=== PATIENT | male | born 1945 | race Caucasian/White ===

== ENCOUNTER 2018-07-29 22:30 | Inpatient (IN) | payer MEDICARE, BC ==
[2018-07-30] MEDS ORDERED: MAGNESIUM HYDROXIDE 30ML CUP PO (01:00)
[2018-07-30] MEDS ORDERED: ACETAMINOPHEN 325 MG TAB PO (01:00)
[2018-07-30] MEDS ORDERED: ONDANSETRON 4 MG INJ IV (01:00)
[2018-07-30] MEDS ORDERED: POLYETHYLENE GLYCOL 17 GM PACKET PO (01:00)
[2018-07-30] MEDS: SOD CHLORIDE 0.9% 1,000 ML IV ×3 (01:17→21:23)
[2018-07-30] MEDS: morphine SULFATE/PF (2 MG/2 ML) SYG IV (01:18)
[2018-07-30] MEDS: PANTOPRAZOLE (EC) 40 MG TAB PO (05:48)
[2018-07-30 06:36] LABS: ADD MAN DIFF? NO
[2018-07-30 06:52] LABS: ABNORMAL IP MESSAGE 1; BASOPHILS % 0.2 % (0.0-2.0); EOSINOPHILS % 0.7 % (0.0-7.0); HEMATOCRIT 20.2 % (42.0-52.0); LYMPHOCYTES # 1.3 10^3/ul (0.8-2.9); LYMPHOCYTES % 22.5 % (15.0-51.0); MEAN CORPUSCULAR HGB CONC 31.7 g/dl (32.0-37.0); MEAN CORPUSCULAR VOLUME 91.4 fl (82.0-101.0); MEAN PLATELET VOLUME 10.3 fl (7.4-10.4); MONOCYTE # 0.6 10^3/ul (0.3-0.9); MONOCYTES % 9.5 % (0.0-11.0); NEUTROPHIL # 3.8 10^3/ul (1.6-7.5); NEUTROPHILS % 64.9 % (39.0-77.0); NUCLEATED RED BLOOD CELLS% 0.5 /100WBC (0.0-0.0); PLATELET COUNT 149 10^3/UL (140-415); POSITIVE DIFF @See below; RED BLOOD COUNT 2.21 10^6/ul (4.70-6.10); RED CELL DISTRIBUTION WIDTH 16.7 % (11.5-14.5)
[2018-07-30 06:52] LABS: WHITE BLOOD COUNT 5.8 10^3/ul (4.8-10.8)
[2018-07-30 07:00] LABS: HEMOGLOBIN 6.4 g/dl (14.0-18.0); PATH REVIEW? YES
[2018-07-30 07:19] LABS: ALANINE AMINOTRANSFERASE 9 IU/L (13-69); ALBUMIN 3.2 g/dl (3.3-4.9); ALBUMIN/GLOBULIN RATIO 0.96; ALKALINE PHOSPHATASE 268 IU/L (42-121); ANION GAP 7 (5-13); ASPARTATE AMINO TRANSFERASE 51 IU/L (15-46); BLOOD UREA NITROGEN 28 mg/dl (7-20); CALCIUM 8.7 mg/dl (8.4-10.2); CARBON DIOXIDE 25 mmol/L (21-31); CHLORIDE 106 mmol/L (97-110); CREATININE 1.49 mg/dl (0.61-1.24); Estimated GFR 47 mL/min (>60); GLUCOSE 124 mg/dl (70-220); POTASSIUM 4.5 mmol/L (3.5-5.1); SODIUM 138 mmol/L (135-144); TOTAL PROTEIN 6.5 g/dl (6.1-8.1)
[2018-07-30 09:09] LABS: ANISOCYTOSIS 2+ (0-0); BAND NEUTROPHILS #M 0.1 10^3/ul (0.0-0.6); BAND NEUTROPHILS % (M) 2 % (0-4); BURR CELLS 1+ (0-0); ERYTHROBLAST% (NRBC) (M) 1 % (0-0); GIANT THROMBO% (M) 1 % (0-0); LYMPHOCYTES #M 1.4 10^3/ul (0.8-2.9); LYMPHOCYTES % (M) 25 % (15-51); MICROCYTOSIS 2+ (0-0); MONOCYTE #M 0.1 10^3/ul (0.3-0.9); MONOCYTES % (M) 3 % (0-11); MYELOCYTES % (M) 1 % (0-0); OVALOCYTES 1+ (0-0); PLATELET ESTIMATE NORMAL; POIKILOCYTOSIS 2+ (0-0); POLYCHROMASIA 1+ (0-0); SEGMENTED NEUTROPHILS (M) % 69 % (39-77); SMUDGE%M 12 % (0-0)
[2018-07-30] MEDS: THIAMINE 100 MG TAB PO (09:50)
[2018-07-30] MEDS: FERROUS SULFATE (EC) 325 MG TAB PO ×3 (09:50→21:03)
[2018-07-30] MEDS: FOLIC ACID 1 MG TAB PO (09:51)
[2018-07-30] MEDS: METOPROLOL 50 MG TAB PO ×2 (09:51→21:03)
[2018-07-30] MEDS: FAMOTIDINE 20 MG TAB PO (09:51)
[2018-07-30] MEDS: MULTIVITAMINS/MINERALS TAB PO (09:51)
[2018-07-30] MEDS: [UNRECOGNIZED DRUG - OTHER] XX ×2 (09:52→16:00)
[2018-07-30 12:45] LABS: IMMEDIATE SPIN CROSSMATCH 1 1
[2018-07-30 16:04] LABS: IRON 66 ug/dl (35-150)
[2018-07-30 16:14] LABS: % IRON SATURATION 26 % SAT (22-52); TOTAL IRON BINDING CAPACITY 254 ug/dl (241-421)
[2018-07-30 17:35] LABS: PROSTATE SPECIFIC ANTIGEN > 1000.0 ng/ml (0.0-4.0)
[2018-07-30] MEDS: TAMSULOSIN (SR) 0.4 MG CAP PO (21:03)
[2018-07-31] MEDS: traMADol 50 MG TAB PO (02:30)
[2018-07-31 05:05] LABS: ADD MAN DIFF? NO
[2018-07-31 05:08] LABS: WHITE BLOOD COUNT 6.2 10^3/ul (4.8-10.8)
[2018-07-31 05:08] LABS: BASOPHILS % 0.3 % (0.0-2.0); EOSINOPHILS # 0.1 10^3/ul (0.0-0.5); HEMATOCRIT 23.7 % (42.0-52.0); HEMOGLOBIN 7.5 g/dl (14.0-18.0); LYMPHOCYTES # 1.2 10^3/ul (0.8-2.9); LYMPHOCYTES % 19.7 % (15.0-51.0); MEAN CORPUSCULAR HGB CONC 31.6 g/dl (32.0-37.0); MEAN CORPUSCULAR VOLUME 91.5 fl (82.0-101.0); MEAN PLATELET VOLUME 9.7 fl (7.4-10.4); MONOCYTE # 0.6 10^3/ul (0.3-0.9); NEUTROPHIL # 4.1 10^3/ul (1.6-7.5); NEUTROPHILS % 66.1 % (39.0-77.0); NUCLEATED RED BLOOD CELLS% 0.3 /100WBC (0.0-0.0); PLATELET COUNT 154 10^3/UL (140-415); RED BLOOD COUNT 2.59 10^6/ul (4.70-6.10); RED CELL DISTRIBUTION WIDTH 15.9 % (11.5-14.5)
[2018-07-31 05:26] LABS: ANION GAP 11 (5-13); BLOOD UREA NITROGEN 21 mg/dl (7-20); CALCIUM 8.6 mg/dl (8.4-10.2); CARBON DIOXIDE 24 mmol/L (21-31); CHLORIDE 104 mmol/L (97-110); CREATININE 1.27 mg/dl (0.61-1.24); Estimated GFR 56 mL/min (>60); GLUCOSE 107 mg/dl (70-220); POTASSIUM 4.2 mmol/L (3.5-5.1); SODIUM 139 mmol/L (135-144)
[2018-07-31] MEDS: PANTOPRAZOLE (EC) 40 MG TAB PO ×2 (06:00→06:39)
[2018-07-31] MEDS: FOLIC ACID 1 MG TAB PO (08:38)
[2018-07-31] MEDS: FAMOTIDINE 20 MG TAB PO (08:38)
[2018-07-31] MEDS: FERROUS SULFATE (EC) 325 MG TAB PO ×3 (08:38→21:29)
[2018-07-31] MEDS: METOPROLOL 50 MG TAB PO ×2 (08:38→21:30)
[2018-07-31] MEDS: THIAMINE 100 MG TAB PO (08:38)
[2018-07-31] MEDS: MULTIVITAMINS/MINERALS TAB PO (08:38)
[2018-07-31] MEDS: [UNRECOGNIZED DRUG - OTHER] XX ×2 (09:51→16:00)
[2018-07-31] MEDS: SOD CHLORIDE 0.9% 1,000 ML IV (10:22)
[2018-07-31] MEDS: BICALUTAMIDE 50 MG TAB PO (18:16)
[2018-07-31] MEDS: TAMSULOSIN (SR) 0.4 MG CAP PO (21:29)
[2018-08-01] MEDS: traMADol 50 MG TAB PO (04:40)
[2018-08-01] MEDS: PANTOPRAZOLE (EC) 40 MG TAB PO (05:15)
[2018-08-01 06:16] LABS: ADD MAN DIFF? NO
[2018-08-01 06:24] LABS: WHITE BLOOD COUNT 5.7 10^3/ul (4.8-10.8)
[2018-08-01 06:24] LABS: BASOPHILS % 0.4 % (0.0-2.0); EOSINOPHILS # 0.1 10^3/ul (0.0-0.5); EOSINOPHILS % 1.1 % (0.0-7.0); HEMATOCRIT 25.8 % (42.0-52.0); HEMOGLOBIN 8.1 g/dl (14.0-18.0); LYMPHOCYTES # 1.1 10^3/ul (0.8-2.9); LYMPHOCYTES % 19.8 % (15.0-51.0); MEAN CORPUSCULAR HEMOGLOBIN 29.1 pg (29.0-33.0); MEAN CORPUSCULAR HGB CONC 31.4 g/dl (32.0-37.0); MEAN CORPUSCULAR VOLUME 92.8 fl (82.0-101.0); MEAN PLATELET VOLUME 10.5 fl (7.4-10.4); MONOCYTE # 0.5 10^3/ul (0.3-0.9); MONOCYTES % 8.3 % (0.0-11.0); NEUTROPHIL # 3.9 10^3/ul (1.6-7.5); NEUTROPHILS % 68.6 % (39.0-77.0); PLATELET COUNT 174 10^3/UL (140-415); RED BLOOD COUNT 2.78 10^6/ul (4.70-6.10); RED CELL DISTRIBUTION WIDTH 15.8 % (11.5-14.5)
[2018-08-01 07:01] LABS: ANION GAP 12 (5-13); BLOOD UREA NITROGEN 20 mg/dl (7-20); CALCIUM 8.7 mg/dl (8.4-10.2); CARBON DIOXIDE 23 mmol/L (21-31); CHLORIDE 106 mmol/L (97-110); CREATININE 1.28 mg/dl (0.61-1.24); Estimated GFR 56 mL/min (>60); GLUCOSE 142 mg/dl (70-220); POTASSIUM 4.5 mmol/L (3.5-5.1); SODIUM 141 mmol/L (135-144)
[2018-08-01] MEDS: THIAMINE 100 MG TAB PO (08:20)
[2018-08-01] MEDS: MULTIVITAMINS/MINERALS TAB PO (08:20)
[2018-08-01] MEDS: METOPROLOL 50 MG TAB PO ×2 (08:21→21:03)
[2018-08-01] MEDS: FERROUS SULFATE (EC) 325 MG TAB PO ×3 (08:21→21:00)
[2018-08-01] MEDS: FOLIC ACID 1 MG TAB PO (08:21)
[2018-08-01] MEDS: FAMOTIDINE 20 MG TAB PO (08:21)
[2018-08-01] MEDS: BICALUTAMIDE 50 MG TAB PO (08:23)
[2018-08-01] MEDS: [UNRECOGNIZED DRUG - OTHER] XX ×2 (10:00→16:00)
[2018-08-01] MEDS: SOD CHLORIDE 0.9% 1,000 ML IV (10:28)
[2018-08-01] MEDS ORDERED: LUPRON DEPOT XX (17:00)
[2018-08-01] MEDS: OXYCODONE/ACETAMINOPHEN (5/325) TAB PO (18:40)
[2018-08-01] MEDS: TAMSULOSIN (SR) 0.4 MG CAP PO (20:59)
[2018-08-01] MEDS: ZOLPIDEM 5 MG TAB PO (21:04)
[2018-08-02] MEDS: PANTOPRAZOLE (EC) 40 MG TAB PO (05:25)
[2018-08-02] MEDS: FOLIC ACID 1 MG TAB PO (09:01)
[2018-08-02] MEDS: MULTIVITAMINS/MINERALS TAB PO (09:01)
[2018-08-02] MEDS: THIAMINE 100 MG TAB PO (09:02)
[2018-08-02] MEDS: FERROUS SULFATE (EC) 325 MG TAB PO ×3 (09:02→21:49)
[2018-08-02] MEDS: METOPROLOL 50 MG TAB PO ×2 (09:02→21:50)
[2018-08-02] MEDS: FAMOTIDINE 20 MG TAB PO (09:02)
[2018-08-02] MEDS: BICALUTAMIDE 50 MG TAB PO (09:03)
[2018-08-02] MEDS: [UNRECOGNIZED DRUG - OTHER] XX ×2 (10:00→16:00)
[2018-08-02] MEDS ORDERED: FENTAnyl 50 MCG/ML VIAL IV (12:30)
[2018-08-02] MEDS ORDERED: ONDANSETRON 4 MG INJ IV (12:30)
[2018-08-02] MEDS: SOD CHLORIDE 0.9% 1,000 ML IV ×2 (16:50→23:36)
[2018-08-02] MEDS: TAMSULOSIN (SR) 0.4 MG CAP PO (21:49)
[2018-08-02] MEDS: ZOLPIDEM 5 MG TAB PO (21:49)
[2018-08-02] MEDS: OXYCODONE/ACETAMINOPHEN (5/325) TAB PO (23:35)
[2018-08-03 05:23] LABS: ADD MAN DIFF? NO
[2018-08-03 05:26] LABS: BASOPHILS % 0.3 % (0.0-2.0); EOSINOPHILS # 0.1 10^3/ul (0.0-0.5); EOSINOPHILS % 1.9 % (0.0-7.0); HEMATOCRIT 23.8 % (42.0-52.0); HEMOGLOBIN 7.6 g/dl (14.0-18.0); LYMPHOCYTES # 1.6 10^3/ul (0.8-2.9); LYMPHOCYTES % 27.7 % (15.0-51.0); MEAN CORPUSCULAR HEMOGLOBIN 29.2 pg (29.0-33.0); MEAN CORPUSCULAR HGB CONC 31.9 g/dl (32.0-37.0); MEAN CORPUSCULAR VOLUME 91.5 fl (82.0-101.0); MEAN PLATELET VOLUME 10.3 fl (7.4-10.4); MONOCYTE # 0.5 10^3/ul (0.3-0.9); NEUTROPHIL # 3.4 10^3/ul (1.6-7.5); NEUTROPHILS % 59.2 % (39.0-77.0); PLATELET COUNT 208 10^3/UL (140-415); RED CELL DISTRIBUTION WIDTH 15.9 % (11.5-14.5)
[2018-08-03 05:26] LABS: WHITE BLOOD COUNT 5.8 10^3/ul (4.8-10.8)
[2018-08-03] MEDS: PANTOPRAZOLE (EC) 40 MG TAB PO (05:28)
[2018-08-03 05:48] LABS: ANION GAP 8 (5-13); BLOOD UREA NITROGEN 26 mg/dl (7-20); CALCIUM 8.8 mg/dl (8.4-10.2); CARBON DIOXIDE 22 mmol/L (21-31); CHLORIDE 108 mmol/L (97-110); CREATININE 1.46 mg/dl (0.61-1.24); Estimated GFR 48 mL/min (>60); GLUCOSE 101 mg/dl (70-220); POTASSIUM 4.2 mmol/L (3.5-5.1); SODIUM 138 mmol/L (135-144)
[2018-08-03 05:52] LABS: MAGNESIUM 1.9 mg/dl (1.7-2.5)
[2018-08-03 05:52] LABS: PHOSPHORUS 4.3 mg/dl (2.5-4.9)
[2018-08-03] MEDS: THIAMINE 100 MG TAB PO (08:50)
[2018-08-03] MEDS: FERROUS SULFATE (EC) 325 MG TAB PO ×3 (08:50→20:31)
[2018-08-03] MEDS: FAMOTIDINE 20 MG TAB PO (08:50)
[2018-08-03] MEDS: FOLIC ACID 1 MG TAB PO (08:50)
[2018-08-03] MEDS: MULTIVITAMINS/MINERALS TAB PO (08:50)
[2018-08-03] MEDS: METOPROLOL 50 MG TAB PO ×2 (08:51→20:32)
[2018-08-03] MEDS: BICALUTAMIDE 50 MG TAB PO (08:52)
[2018-08-03] MEDS: [UNRECOGNIZED DRUG - OTHER] XX ×2 (08:53→15:02)
[2018-08-03 13:21] LABS: ALPHA FETOPROTEIN 1.97 IU/L (0.00-7.21)
[2018-08-03 13:32] LABS: CANCER ANTIGEN 19-9 < 1.4 U/ml (0.0-37.0)
[2018-08-03] MEDS: TAMSULOSIN (SR) 0.4 MG CAP PO (20:31)
[2018-08-04] MEDS: OXYCODONE/ACETAMINOPHEN (5/325) TAB PO ×2 (02:01→20:31)
[2018-08-04] MEDS: PANTOPRAZOLE (EC) 40 MG TAB PO (06:21)
[2018-08-04 06:23] LABS: ALANINE AMINOTRANSFERASE 15 IU/L (13-69); ALBUMIN 3.1 g/dl (3.3-4.9); ALKALINE PHOSPHATASE 242 IU/L (42-121); ASPARTATE AMINO TRANSFERASE 24 IU/L (15-46); TOTAL PROTEIN 6.2 g/dl (6.1-8.1)
[2018-08-04] MEDS: MULTIVITAMINS/MINERALS TAB PO (08:47)
[2018-08-04] MEDS: FERROUS SULFATE (EC) 325 MG TAB PO ×3 (08:47→20:34)
[2018-08-04] MEDS: FOLIC ACID 1 MG TAB PO (08:47)
[2018-08-04] MEDS: THIAMINE 100 MG TAB PO (08:47)
[2018-08-04] MEDS: FAMOTIDINE 20 MG TAB PO (08:47)
[2018-08-04] MEDS: BICALUTAMIDE 50 MG TAB PO (08:48)
[2018-08-04] MEDS: METOPROLOL 50 MG TAB PO ×2 (08:48→20:32)
[2018-08-04] MEDS: [UNRECOGNIZED DRUG - OTHER] XX ×2 (08:49→14:48)
[2018-08-04] MEDS: SOD CHLORIDE 0.9% 1,000 ML IV (08:57)
[2018-08-04] MEDS: TAMSULOSIN (SR) 0.4 MG CAP PO (20:30)
[2018-08-04] MEDS: morphine LIQ (10 MG/5 ML) CUP PO (22:16)
[2018-08-05] MEDS: PANTOPRAZOLE (EC) 40 MG TAB PO (05:45)
[2018-08-05] MEDS: OXYCODONE/ACETAMINOPHEN (5/325) TAB PO ×2 (05:46→17:47)
[2018-08-05] MEDS: [UNRECOGNIZED DRUG - OTHER] XX ×2 (09:16→16:00)
[2018-08-05] MEDS: MULTIVITAMINS/MINERALS TAB PO (09:25)
[2018-08-05] MEDS: FAMOTIDINE 20 MG TAB PO (09:25)
[2018-08-05] MEDS: FERROUS SULFATE (EC) 325 MG TAB PO ×3 (09:25→20:42)
[2018-08-05] MEDS: FOLIC ACID 1 MG TAB PO (09:25)
[2018-08-05] MEDS: THIAMINE 100 MG TAB PO (09:25)
[2018-08-05] MEDS: BICALUTAMIDE 50 MG TAB PO (09:27)
[2018-08-05 10:26] LABS: ADD MAN DIFF? NO
[2018-08-05 10:44] LABS: BASOPHILS % 0.2 % (0.0-2.0); EOSINOPHILS # 0.1 10^3/ul (0.0-0.5); EOSINOPHILS % 1.6 % (0.0-7.0); HEMATOCRIT 25.6 % (42.0-52.0); HEMOGLOBIN 7.8 g/dl (14.0-18.0); LYMPHOCYTES # 1.4 10^3/ul (0.8-2.9); LYMPHOCYTES % 27.8 % (15.0-51.0); MEAN CORPUSCULAR HEMOGLOBIN 29.1 pg (29.0-33.0); MEAN CORPUSCULAR HGB CONC 30.5 g/dl (32.0-37.0); MEAN CORPUSCULAR VOLUME 95.5 fl (82.0-101.0); MEAN PLATELET VOLUME 10.3 fl (7.4-10.4); MONOCYTE # 0.5 10^3/ul (0.3-0.9); MONOCYTES % 9.7 % (0.0-11.0); NEUTROPHIL # 2.9 10^3/ul (1.6-7.5); NEUTROPHILS % 58.1 % (39.0-77.0); PLATELET COUNT 234 10^3/UL (140-415); RED BLOOD COUNT 2.68 10^6/ul (4.70-6.10); RED CELL DISTRIBUTION WIDTH 16.5 % (11.5-14.5)
[2018-08-05 11:00] LABS: ANION GAP 9 (5-13); BLOOD UREA NITROGEN 24 mg/dl (7-20); CALCIUM 9.2 mg/dl (8.4-10.2); CARBON DIOXIDE 22 mmol/L (21-31); CHLORIDE 110 mmol/L (97-110); CREATININE 1.23 mg/dl (0.61-1.24); Estimated GFR 58 mL/min (>60); GLUCOSE 126 mg/dl (70-220); POTASSIUM 3.8 mmol/L (3.5-5.1); SODIUM 141 mmol/L (135-144)
[2018-08-05] MEDS: METOPROLOL 50 MG TAB PO ×2 (11:07→20:43)
[2018-08-05] MEDS: TAMSULOSIN (SR) 0.4 MG CAP PO (20:42)
[2018-08-06] MEDS: OXYCODONE/ACETAMINOPHEN (5/325) TAB PO ×4 (02:49→21:06)
[2018-08-06] MEDS: PANTOPRAZOLE (EC) 40 MG TAB PO (06:03)
[2018-08-06] MEDS: SENNA TAB PO (06:03)
[2018-08-06] MEDS: MULTIVITAMINS/MINERALS TAB PO (09:15)
[2018-08-06] MEDS: FERROUS SULFATE (EC) 325 MG TAB PO ×3 (09:15→20:47)
[2018-08-06] MEDS: THIAMINE 100 MG TAB PO (09:15)
[2018-08-06] MEDS: FAMOTIDINE 20 MG TAB PO (09:15)
[2018-08-06] MEDS: FOLIC ACID 1 MG TAB PO (09:15)
[2018-08-06] MEDS: METOPROLOL 50 MG TAB PO ×2 (09:16→20:46)
[2018-08-06] MEDS: BICALUTAMIDE 50 MG TAB PO (09:16)
[2018-08-06] MEDS: [UNRECOGNIZED DRUG - OTHER] XX ×2 (10:00→16:00)
[2018-08-06] MEDS: TAMSULOSIN (SR) 0.4 MG CAP PO (20:47)
[2018-08-06 23:09] LABS: OCCULT BLOOD STOOL NEGATIVE (NEGATIVE)
[2018-08-07 06:25] LABS: ADD MAN DIFF? NO
[2018-08-07 06:30] LABS: WHITE BLOOD COUNT 4.4 10^3/ul (4.8-10.8)
[2018-08-07 06:30] LABS: BASOPHILS % 0.2 % (0.0-2.0); EOSINOPHILS # 0.1 10^3/ul (0.0-0.5); EOSINOPHILS % 2.1 % (0.0-7.0); HEMATOCRIT 23.9 % (42.0-52.0); HEMOGLOBIN 7.5 g/dl (14.0-18.0); LYMPHOCYTES # 1.2 10^3/ul (0.8-2.9); LYMPHOCYTES % 27.6 % (15.0-51.0); MEAN CORPUSCULAR HEMOGLOBIN 29.5 pg (29.0-33.0); MEAN CORPUSCULAR HGB CONC 31.4 g/dl (32.0-37.0); MEAN CORPUSCULAR VOLUME 94.1 fl (82.0-101.0); MEAN PLATELET VOLUME 10.2 fl (7.4-10.4); MONOCYTE # 0.4 10^3/ul (0.3-0.9); MONOCYTES % 9.6 % (0.0-11.0); NEUTROPHIL # 2.6 10^3/ul (1.6-7.5); NEUTROPHILS % 58.9 % (39.0-77.0); PLATELET COUNT 218 10^3/UL (140-415); RED BLOOD COUNT 2.54 10^6/ul (4.70-6.10); RED CELL DISTRIBUTION WIDTH 16.3 % (11.5-14.5)
[2018-08-07] MEDS: PANTOPRAZOLE (EC) 40 MG TAB PO (06:38)
[2018-08-07 06:46] LABS: ANION GAP 8 (5-13); BLOOD UREA NITROGEN 23 mg/dl (7-20); CALCIUM 8.9 mg/dl (8.4-10.2); CARBON DIOXIDE 25 mmol/L (21-31); CHLORIDE 105 mmol/L (97-110); CREATININE 1.22 mg/dl (0.61-1.24); Estimated GFR 59 mL/min (>60); GLUCOSE 115 mg/dl (70-220); POTASSIUM 4.3 mmol/L (3.5-5.1); SODIUM 138 mmol/L (135-144)
[2018-08-07] MEDS: FOLIC ACID 1 MG TAB PO (09:15)
[2018-08-07] MEDS: THIAMINE 100 MG TAB PO (09:15)
[2018-08-07] MEDS: OXYCODONE/ACETAMINOPHEN (5/325) TAB PO ×2 (09:15→17:49)
[2018-08-07] MEDS: BICALUTAMIDE 50 MG TAB PO (09:16)
[2018-08-07] MEDS: FERROUS SULFATE (EC) 325 MG TAB PO ×3 (09:16→20:34)
[2018-08-07] MEDS: METOPROLOL 50 MG TAB PO (09:16)
[2018-08-07] MEDS: MULTIVITAMINS/MINERALS TAB PO (09:16)
[2018-08-07] MEDS: FAMOTIDINE 20 MG TAB PO (09:17)
[2018-08-07] MEDS: [UNRECOGNIZED DRUG - OTHER] XX ×2 (09:21→14:27)
[2018-08-07] MEDS: TAMSULOSIN (SR) 0.4 MG CAP PO (20:33)
[2018-08-07] MEDS: traMADol 50 MG TAB PO (20:33)
[2018-08-07] MEDS: METOPROLOL 25 MG TAB PO (20:33)
[2018-08-07] MEDS: morphine LIQ (10 MG/5 ML) CUP PO (23:36)
[2018-08-08] MEDS: OXYCODONE/ACETAMINOPHEN (5/325) TAB PO ×2 (03:17→23:39)
[2018-08-08] MEDS: PANTOPRAZOLE (EC) 40 MG TAB PO (06:17)
[2018-08-08] MEDS: THIAMINE 100 MG TAB PO (08:40)
[2018-08-08] MEDS: MULTIVITAMINS/MINERALS TAB PO (08:40)
[2018-08-08] MEDS: FERROUS SULFATE (EC) 325 MG TAB PO ×3 (08:40→19:45)
[2018-08-08] MEDS: FOLIC ACID 1 MG TAB PO (08:40)
[2018-08-08] MEDS: FAMOTIDINE 20 MG TAB PO (08:40)
[2018-08-08] MEDS: BICALUTAMIDE 50 MG TAB PO (08:41)
[2018-08-08] MEDS: METOPROLOL 25 MG TAB PO (09:00)
[2018-08-08] MEDS: [UNRECOGNIZED DRUG - OTHER] XX ×2 (09:10→15:00)
[2018-08-08] MEDS: PROPOFOL 20 ML (19:30)
[2018-08-08] MEDS: FENTAnyl 50 MCG/ML VIAL (19:30)
[2018-08-08] MEDS: TAMSULOSIN (SR) 0.4 MG CAP PO (19:46)
[2018-08-09] MEDS: traMADol 50 MG TAB PO (02:01)
[2018-08-09] MEDS: PANTOPRAZOLE (EC) 40 MG TAB PO (05:22)
[2018-08-09 07:23] LABS: ADD MAN DIFF? NO
[2018-08-09 07:33] LABS: BASOPHILS % 0.2 % (0.0-2.0); EOSINOPHILS # 0.1 10^3/ul (0.0-0.5); EOSINOPHILS % 2.2 % (0.0-7.0); HEMATOCRIT 24.1 % (42.0-52.0); HEMOGLOBIN 7.5 g/dl (14.0-18.0); LYMPHOCYTES # 1.2 10^3/ul (0.8-2.9); LYMPHOCYTES % 26.4 % (15.0-51.0); MEAN CORPUSCULAR HEMOGLOBIN 29.9 pg (29.0-33.0); MEAN CORPUSCULAR HGB CONC 31.1 g/dl (32.0-37.0); MEAN PLATELET VOLUME 10.5 fl (7.4-10.4); MONOCYTE # 0.4 10^3/ul (0.3-0.9); MONOCYTES % 9.4 % (0.0-11.0); NEUTROPHIL # 2.7 10^3/ul (1.6-7.5); PLATELET COUNT 217 10^3/UL (140-415); RED BLOOD COUNT 2.51 10^6/ul (4.70-6.10); RED CELL DISTRIBUTION WIDTH 16.8 % (11.5-14.5)
[2018-08-09 07:33] LABS: WHITE BLOOD COUNT 4.5 10^3/ul (4.8-10.8)
[2018-08-09 07:50] LABS: ANION GAP 9 (5-13); BLOOD UREA NITROGEN 23 mg/dl (7-20); CALCIUM 9.3 mg/dl (8.4-10.2); CARBON DIOXIDE 26 mmol/L (21-31); CHLORIDE 103 mmol/L (97-110); CREATININE 1.23 mg/dl (0.61-1.24); Estimated GFR 58 mL/min (>60); GLUCOSE 117 mg/dl (70-220); POTASSIUM 4.1 mmol/L (3.5-5.1); SODIUM 138 mmol/L (135-144)
[2018-08-09] MEDS: FOLIC ACID 1 MG TAB PO (08:34)
[2018-08-09] MEDS: THIAMINE 100 MG TAB PO (08:34)
[2018-08-09] MEDS: FAMOTIDINE 20 MG TAB PO (08:34)
[2018-08-09] MEDS: MULTIVITAMINS/MINERALS TAB PO (08:34)
[2018-08-09] MEDS: FERROUS SULFATE (EC) 325 MG TAB PO ×3 (08:34→21:00)
[2018-08-09] MEDS: BICALUTAMIDE 50 MG TAB PO (08:35)
[2018-08-09] MEDS: [UNRECOGNIZED DRUG - OTHER] XX ×2 (10:00→15:31)
[2018-08-09] MEDS: OXYCODONE/ACETAMINOPHEN (5/325) TAB PO ×2 (13:34→21:01)
[2018-08-09] MEDS: TAMSULOSIN (SR) 0.4 MG CAP PO (21:00)
[2018-08-10] MEDS: PANTOPRAZOLE (EC) 40 MG TAB PO (05:52)
[2018-08-10] MEDS: OXYCODONE/ACETAMINOPHEN (5/325) TAB PO ×3 (05:52→21:04)
[2018-08-10 07:49] LABS: ALANINE AMINOTRANSFERASE 18 IU/L (13-69); ALBUMIN 3.6 g/dl (3.3-4.9); ALBUMIN/GLOBULIN RATIO 1.09; ALKALINE PHOSPHATASE 356 IU/L (42-121); ANION GAP 8 (5-13); ASPARTATE AMINO TRANSFERASE 34 IU/L (15-46); BLOOD UREA NITROGEN 26 mg/dl (7-20); CALCIUM 9.4 mg/dl (8.4-10.2); CARBON DIOXIDE 29 mmol/L (21-31); CHLORIDE 101 mmol/L (97-110); Estimated GFR 55 mL/min (>60); GLUCOSE 92 mg/dl (70-220); POTASSIUM 4.9 mmol/L (3.5-5.1); SODIUM 138 mmol/L (135-144); TOTAL PROTEIN 6.9 g/dl (6.1-8.1)
[2018-08-10] MEDS: FOLIC ACID 1 MG TAB PO (08:50)
[2018-08-10] MEDS: THIAMINE 100 MG TAB PO (08:50)
[2018-08-10] MEDS: FAMOTIDINE 20 MG TAB PO (08:50)
[2018-08-10] MEDS: MULTIVITAMINS/MINERALS TAB PO (08:50)
[2018-08-10] MEDS: FERROUS SULFATE (EC) 325 MG TAB PO ×3 (08:50→21:04)
[2018-08-10] MEDS: BICALUTAMIDE 50 MG TAB PO (08:51)
[2018-08-10] MEDS: [UNRECOGNIZED DRUG - OTHER] XX ×2 (08:55→15:03)
[2018-08-10] MEDS: TAMSULOSIN (SR) 0.4 MG CAP PO (21:04)
[2018-08-11] MEDS: PANTOPRAZOLE (EC) 40 MG TAB PO (06:23)
[2018-08-11] MEDS: OXYCODONE/ACETAMINOPHEN (5/325) TAB PO (06:23)
[2018-08-11] MEDS: MULTIVITAMINS/MINERALS TAB PO (08:40)
[2018-08-11] MEDS: THIAMINE 100 MG TAB PO (08:40)
[2018-08-11] MEDS: FOLIC ACID 1 MG TAB PO (08:40)
[2018-08-11] MEDS: FAMOTIDINE 20 MG TAB PO (08:40)
[2018-08-11] MEDS: FERROUS SULFATE (EC) 325 MG TAB PO ×2 (08:40→14:23)
[2018-08-11] MEDS: [UNRECOGNIZED DRUG - OTHER] XX ×2 (08:40→15:28)
[2018-08-11] MEDS: BICALUTAMIDE 50 MG TAB PO (08:43)
[2018-08-11 10:32] LABS: ALANINE AMINOTRANSFERASE 24 IU/L (13-69)
[2018-08-11 10:32] LABS: ASPARTATE AMINO TRANSFERASE 27 IU/L (15-46)
[2018-08-13 15:26] LABS: ALKALINE PHOSPHATASE 456 U/L (40-115); BONE ISOENZYMES 76 % (28-66); INTESTINAL ISOENZYMES 5 % (1-24); LIVER ISOENZYMES 19 % (25-69); PLACENTAL ISOENZYMES 0 % (0)
== END 2018-08-11 15:43 | DRG 542 ==
LOC: TEL 22:30 → PP2 07-30 18:54
PROC: 30233N1 Transfusion of Nonautologous Red Blood Cells into Peripheral Vein, Percutaneous Approach (ICD-10-PCS; principal; 2018-08-02 11:23)
PROC: 0DB68ZX Excision of Stomach, Via Natural or Artificial Opening Endoscopic, Diagnostic (ICD-10-PCS; 2018-08-02 11:23)
DX: C79.51 Secondary malignant neoplasm of bone (principal); G93.41 Metabolic encephalopathy; D63.8 Anemia in other chronic diseases classified elsewhere; E43 Unspecified severe protein-calorie malnutrition; N17.9 Acute kidney failure, unspecified; Z68.1 Body mass index [BMI] 19.9 or less, adult; C78.00 Secondary malignant neoplasm of unspecified lung; N13.1 Hydronephrosis with ureteral stricture, not elsewhere classified; K92.2 Gastrointestinal hemorrhage, unspecified; R59.1 Generalized enlarged lymph nodes; D69.6 Thrombocytopenia, unspecified; F10.21 Alcohol dependence, in remission; Z86.19 Personal history of other infectious and parasitic diseases; C61 Malignant neoplasm of prostate; K29.00 Acute gastritis without bleeding
CPT/HCPCS: 36430; 72100; 72170; 74018; 74181; 76705; 76775; 78306; 80048; 80053; 80076; 82105; 82247; 82270; 82378; 82728; 83540; 83735; 84080; 84100; 84153; 84154; 84450; 84460; 85025; 86301; 86850; 86900; 86901; 86920; 88305; 88312; 97161; A9503

== ENCOUNTER 2019-02-10 05:11 | Inpatient (IN) | payer MEDICARE, BC ==
[2019-02-10] MEDS ORDERED: PENDING SANTYL ORDER FOR WOUND CARE XX (06:00)
[2019-02-10] MEDS ORDERED: BISACODYL (EC) 5 MG TAB PO (06:00)
[2019-02-10] MEDS ORDERED: ALBUTEROL/IPRATROPIUM (NEB) 3 ML AMP HHN (06:00)
[2019-02-10] MEDS: ACETAMINOPHEN 325 MG TAB PO ×2 (06:35→10:45)
[2019-02-10] MEDS: PANTOPRAZOLE (EC) 40 MG TAB PO (06:35)
[2019-02-10] MEDS: SOD CHLORIDE 0.9% 1,000 ML IV (06:36)
[2019-02-10 09:23] LABS: ADD MAN DIFF? NO
[2019-02-10 09:24] LABS: WHITE BLOOD COUNT 4.1 10^3/ul (4.8-10.8)
[2019-02-10 09:25] LABS: ABNORMAL IP MESSAGE 1; BASOPHILS % 0.2 % (0.0-2.0); EOSINOPHILS % 0.5 % (0.0-7.0); HEMATOCRIT 26.1 % (42.0-52.0); HEMOGLOBIN 7.5 g/dl (14.0-18.0); LYMPHOCYTES # 0.7 10^3/ul (0.8-2.9); MEAN CORPUSCULAR HGB CONC 28.7 g/dl (32.0-37.0); MEAN CORPUSCULAR VOLUME 90.6 fl (82.0-101.0); MEAN PLATELET VOLUME 10.2 fl (7.4-10.4); MONOCYTE # 0.3 10^3/ul (0.3-0.9); MONOCYTES % 6.3 % (0.0-11.0); NEUTROPHIL # 3.1 10^3/ul (1.6-7.5); NEUTROPHILS % 75.5 % (39.0-77.0); POSITIVE DIFF @See below; RED BLOOD COUNT 2.88 10^6/ul (4.70-6.10); RED CELL DISTRIBUTION WIDTH 16.6 % (11.5-14.5)
[2019-02-10 09:30] LABS: PLATELET COUNT 104 10^3/UL (140-415)
[2019-02-10 09:43] LABS: ALANINE AMINOTRANSFERASE 13 IU/L (13-69); ALBUMIN 2.4 g/dl (3.3-4.9); ALBUMIN/GLOBULIN RATIO 0.72; ALKALINE PHOSPHATASE 442 IU/L (42-121); ANION GAP 7 (5-13); ASPARTATE AMINO TRANSFERASE 49 IU/L (15-46); BILIRUBIN,INDIRECT 0.2 mg/dl (0-1.1); BILIRUBIN,TOTAL 0.2 mg/dl (0.2-1.3); BLOOD UREA NITROGEN 25 mg/dl (7-20); CALCIUM 7.1 mg/dl (8.4-10.2); CARBON DIOXIDE 20 mmol/L (21-31); CHLORIDE 109 mmol/L (97-110); CREATININE 1.21 mg/dl (0.61-1.24); GLUCOSE 104 mg/dl (70-220); POTASSIUM 3.8 mmol/L (3.5-5.1); SODIUM 136 mmol/L (135-144); TOTAL PROTEIN 5.7 g/dl (6.1-8.1)
[2019-02-10] MEDS: CEFTRIAXONE 1 GM/50 ML (PMX) 50 ML IVPB (16:00)
[2019-02-10] MEDS: CA CARBONATE (250 MG/ML) 5ML CUP PO (20:48)
[2019-02-11] MEDS: HYDROCODONE/APAP (5/325) TAB PO ×2 (03:46→10:11)
[2019-02-11] MEDS: PANTOPRAZOLE (EC) 40 MG TAB PO (08:51)
[2019-02-11] MEDS: BICALUTAMIDE 50 MG TAB PO (08:52)
[2019-02-11] MEDS: CA CARBONATE (250 MG/ML) 5ML CUP PO ×2 (09:00→20:39)
[2019-02-11 09:54] LABS: ADD MAN DIFF? NO
[2019-02-11 09:56] LABS: EOSINOPHILS % 0.2 % (0.0-7.0); HEMATOCRIT 27.2 % (42.0-52.0); HEMOGLOBIN 8.4 g/dl (14.0-18.0); LYMPHOCYTES # 0.9 10^3/ul (0.8-2.9); LYMPHOCYTES % 14.6 % (15.0-51.0); MEAN CORPUSCULAR HEMOGLOBIN 26.3 pg (29.0-33.0); MEAN CORPUSCULAR HGB CONC 30.9 g/dl (32.0-37.0); MEAN PLATELET VOLUME 8.7 fl (7.4-10.4); MONOCYTE # 0.3 10^3/ul (0.3-0.9); MONOCYTES % 4.4 % (0.0-11.0); NEUTROPHIL # 4.9 10^3/ul (1.6-7.5); PLATELET COUNT 136 10^3/UL (140-415); RED CELL DISTRIBUTION WIDTH 16.5 % (11.5-14.5)
[2019-02-11 09:56] LABS: WHITE BLOOD COUNT 6.1 10^3/ul (4.8-10.8)
[2019-02-11 10:15] LABS: ANION GAP 5 (5-13); BLOOD UREA NITROGEN 25 mg/dl (7-20); CALCIUM 8.1 mg/dl (8.4-10.2); CARBON DIOXIDE 27 mmol/L (21-31); CHLORIDE 105 mmol/L (97-110); CREATININE 1.19 mg/dl (0.61-1.24); GLUCOSE 143 mg/dl (70-220); POTASSIUM 4.6 mmol/L (3.5-5.1); SODIUM 137 mmol/L (135-144)
[2019-02-11 10:20] LABS: PHOSPHORUS 2.5 mg/dl (2.5-4.9)
[2019-02-11 10:20] LABS: MAGNESIUM 1.8 mg/dl (1.7-2.5)
[2019-02-11] MEDS ORDERED: HYDROCODONE/APAP (5/325) TAB PO ×2 (10:35→11:00)
[2019-02-11] MEDS: KETOROLAC 30 MG INJ IV ×2 (15:30→21:30)
[2019-02-11] MEDS: CEFTRIAXONE 1 GM/50 ML (PMX) 50 ML IVPB (16:00)
[2019-02-11] MEDS: HYDROmorphONE 2 MG/ML SYG IV ×2 (16:25→20:40)
[2019-02-11] MEDS: METHADONE (1 MG/ML 5 ML PO UD SYG) PO ×2 (18:31→21:40)
[2019-02-11] MEDS: LORAZEPAM 2 MG INJ IV (23:04)
[2019-02-12] MEDS: METHADONE (1 MG/ML 5 ML PO UD SYG) PO ×7 (01:00→23:28)
[2019-02-12] MEDS: KETOROLAC 30 MG INJ IV ×4 (03:30→21:01)
[2019-02-12] MEDS: PANTOPRAZOLE (EC) 40 MG TAB PO (05:33)
[2019-02-12 08:48] LABS: ADD MAN DIFF? NO
[2019-02-12] MEDS: CA CARBONATE (250 MG/ML) 5ML CUP PO ×2 (08:55→20:59)
[2019-02-12] MEDS: BICALUTAMIDE 50 MG TAB PO (08:55)
[2019-02-12 09:10] LABS: WHITE BLOOD COUNT 4.3 10^3/ul (4.8-10.8)
[2019-02-12 09:10] LABS: ABNORMAL IP MESSAGE 1; BASOPHILS % 0.2 % (0.0-2.0); HEMOGLOBIN 10.8 g/dl (14.0-18.0); LYMPHOCYTES # 0.9 10^3/ul (0.8-2.9); LYMPHOCYTES % 20.9 % (15.0-51.0); MEAN CORPUSCULAR HGB CONC 30.9 g/dl (32.0-37.0); MEAN CORPUSCULAR VOLUME 84.3 fl (82.0-101.0); MEAN PLATELET VOLUME 11.7 fl (7.4-10.4); MONOCYTE # 0.2 10^3/ul (0.3-0.9); MONOCYTES % 5.2 % (0.0-11.0); NEUTROPHIL # 3.1 10^3/ul (1.6-7.5); NEUTROPHILS % 72.5 % (39.0-77.0); PLATELET COUNT 95 10^3/UL (140-415); POSITIVE DIFF @See below; RED BLOOD COUNT 4.15 10^6/ul (4.70-6.10); RED CELL DISTRIBUTION WIDTH 16.5 % (11.5-14.5)
[2019-02-12 09:13] LABS: ANION GAP 12 (5-13); BLOOD UREA NITROGEN 24 mg/dl (7-20); CALCIUM 8.5 mg/dl (8.4-10.2); CARBON DIOXIDE 22 mmol/L (21-31); CHLORIDE 106 mmol/L (97-110); CREATININE 0.95 mg/dl (0.61-1.24); GLUCOSE 68 mg/dl (70-220); POTASSIUM 4.7 mmol/L (3.5-5.1); SODIUM 140 mmol/L (135-144)
[2019-02-12] MEDS: CEFTRIAXONE 1 GM/50 ML (PMX) 50 ML IVPB (15:54)
[2019-02-12] MEDS ORDERED: METHADONE (1 MG/ML 5 ML PO UD SYG) PO (18:00)
[2019-02-12] MEDS: TAMSULOSIN (SR) 0.4 MG CAP PO (20:59)
[2019-02-12] MEDS: LORAZEPAM 2 MG INJ IV (23:29)
[2019-02-13] MEDS: KETOROLAC 30 MG INJ IV ×4 (03:27→21:08)
[2019-02-13 05:16] LABS: ADD MAN DIFF? NO
[2019-02-13 05:21] LABS: EOSINOPHILS % 0.6 % (0.0-7.0); HEMATOCRIT 26.2 % (42.0-52.0); LYMPHOCYTES # 0.8 10^3/ul (0.8-2.9); LYMPHOCYTES % 18.1 % (15.0-51.0); MEAN CORPUSCULAR HEMOGLOBIN 26.1 pg (29.0-33.0); MEAN CORPUSCULAR HGB CONC 30.5 g/dl (32.0-37.0); MEAN CORPUSCULAR VOLUME 85.6 fl (82.0-101.0); MONOCYTE # 0.2 10^3/ul (0.3-0.9); MONOCYTES % 4.7 % (0.0-11.0); NEUTROPHIL # 3.5 10^3/ul (1.6-7.5); NEUTROPHILS % 75.7 % (39.0-77.0); PLATELET COUNT 111 10^3/UL (140-415); RED BLOOD COUNT 3.06 10^6/ul (4.70-6.10); RED CELL DISTRIBUTION WIDTH 16.5 % (11.5-14.5)
[2019-02-13 05:21] LABS: WHITE BLOOD COUNT 4.7 10^3/ul (4.8-10.8)
[2019-02-13 05:39] LABS: INR 1.16; PROTIME 14.9 Sec (11.9-14.9); PT RATIO 1.2
[2019-02-13] MEDS: METHADONE (1 MG/ML 5 ML PO UD SYG) PO ×4 (05:43→23:30)
[2019-02-13] MEDS: PANTOPRAZOLE (EC) 40 MG TAB PO (05:43)
[2019-02-13 05:53] LABS: ANION GAP 7 (5-13); BLOOD UREA NITROGEN 26 mg/dl (7-20); CALCIUM 8.3 mg/dl (8.4-10.2); CARBON DIOXIDE 26 mmol/L (21-31); CHLORIDE 105 mmol/L (97-110); CREATININE 1.02 mg/dl (0.61-1.24); GLUCOSE 122 mg/dl (70-220); POTASSIUM 4.2 mmol/L (3.5-5.1); SODIUM 138 mmol/L (135-144)
[2019-02-13] MEDS: CA CARBONATE (250 MG/ML) 5ML CUP PO ×2 (09:25→21:08)
[2019-02-13] MEDS: BICALUTAMIDE 50 MG TAB PO (09:26)
[2019-02-13] MEDS: CEFTRIAXONE 1 GM/50 ML (PMX) 50 ML IVPB (16:00)
[2019-02-13] MEDS: HYDROmorphONE 2 MG/ML SYG IV (16:43)
[2019-02-13] MEDS: TAMSULOSIN (SR) 0.4 MG CAP PO (21:08)
[2019-02-13 23:12] LABS: ADD UMIC YES; UR AMORPHOUS CRYSTAL FEW /HPF (NONE SEEN); UR ASCORBIC ACID NEGATIVE (NEGATIVE); UR BACTERIA FEW /HPF (NONE SEEN); UR BILIRUBIN (Dip) NEGATIVE (NEGATIVE); UR BLOOD (Dip) 2+ mg/dL (NEGATIVE); UR CLARITY TURBID (CLEAR); UR COLOR AMBER (YELLOW); UR GLUCOSE (Dip) NEGATIVE (NEGATIVE); UR KETONES (Dip) NEGATIVE (NEGATIVE); UR LEUKOCYTE ESTERASE (Dip) 2+ Leu/ul (NEGATIVE); UR NITRITE (Dip) NEGATIVE (NEGATIVE); UR NONSQUAMOUS EPITHELIAL CELL 2 /HPF (NONE SEEN); UR RBC 17 /HPF (0-5); UR SPECIFIC GRAVITY (Dip) 1.013 (1.003-1.030); UR SQUAMOUS EPITHELIAL CELL FEW /HPF (FEW); UR TOTAL PROTEIN (Dip) 1+ mg/dl (NEGATIVE); UR UROBILINOGEN (Dip) NEGATIVE (NEGATIVE); UR WBC > 182 /HPF (0-5)
[2019-02-14] MEDS: LORAZEPAM 2 MG INJ IV ×2 (01:03→14:33)
[2019-02-14] MEDS: KETOROLAC 30 MG INJ IV ×2 (03:45→09:30)
[2019-02-14 05:13] LABS: ADD MAN DIFF? NO
[2019-02-14 05:18] LABS: WHITE BLOOD COUNT 4.4 10^3/ul (4.8-10.8)
[2019-02-14 05:18] LABS: EOSINOPHILS % 0.5 % (0.0-7.0); HEMATOCRIT 22.8 % (42.0-52.0); HEMOGLOBIN 7.1 g/dl (14.0-18.0); LYMPHOCYTES # 0.8 10^3/ul (0.8-2.9); LYMPHOCYTES % 18.2 % (15.0-51.0); MEAN CORPUSCULAR HEMOGLOBIN 26.7 pg (29.0-33.0); MEAN CORPUSCULAR HGB CONC 31.1 g/dl (32.0-37.0); MEAN CORPUSCULAR VOLUME 85.7 fl (82.0-101.0); MEAN PLATELET VOLUME 9.7 fl (7.4-10.4); MONOCYTE # 0.2 10^3/ul (0.3-0.9); MONOCYTES % 4.3 % (0.0-11.0); NEUTROPHIL # 3.3 10^3/ul (1.6-7.5); NEUTROPHILS % 75.4 % (39.0-77.0); PLATELET COUNT 120 10^3/UL (140-415); RED BLOOD COUNT 2.66 10^6/ul (4.70-6.10); RED CELL DISTRIBUTION WIDTH 16.6 % (11.5-14.5)
[2019-02-14] MEDS: METHADONE (1 MG/ML 5 ML PO UD SYG) PO ×3 (05:37→19:12)
[2019-02-14] MEDS: PANTOPRAZOLE (EC) 40 MG TAB PO (05:37)
[2019-02-14 06:14] LABS: ANION GAP 4 (5-13); BLOOD UREA NITROGEN 24 mg/dl (7-20); CALCIUM 8.1 mg/dl (8.4-10.2); CARBON DIOXIDE 28 mmol/L (21-31); CHLORIDE 104 mmol/L (97-110); CREATININE 1.04 mg/dl (0.61-1.24); GLUCOSE 103 mg/dl (70-220); POTASSIUM 4.5 mmol/L (3.5-5.1); SODIUM 136 mmol/L (135-144)
[2019-02-14] MEDS: BICALUTAMIDE 50 MG TAB PO (09:00)
[2019-02-14] MEDS: CA CARBONATE (250 MG/ML) 5ML CUP PO ×2 (09:00→21:07)
[2019-02-14] MEDS: HYDROmorphONE 2 MG/ML SYG IV ×3 (11:56→21:56)
[2019-02-14] MEDS: CEFTRIAXONE 1 GM/50 ML (PMX) 50 ML IVPB (16:00)
[2019-02-14] MEDS: TAMSULOSIN (SR) 0.4 MG CAP PO (21:08)
[2019-02-15] MEDS: METHADONE (1 MG/ML 5 ML PO UD SYG) PO ×5 (00:08→23:41)
[2019-02-15] MEDS: HYDROmorphONE 2 MG/ML SYG IV ×3 (03:08→20:03)
[2019-02-15 05:09] LABS: ADD MAN DIFF? NO
[2019-02-15 05:21] LABS: BASOPHILS % 0.2 % (0.0-2.0); EOSINOPHILS % 0.2 % (0.0-7.0); HEMATOCRIT 25.2 % (42.0-52.0); HEMOGLOBIN 7.8 g/dl (14.0-18.0); LYMPHOCYTES # 0.8 10^3/ul (0.8-2.9); LYMPHOCYTES % 15.8 % (15.0-51.0); MEAN CORPUSCULAR HEMOGLOBIN 26.4 pg (29.0-33.0); MEAN CORPUSCULAR VOLUME 85.4 fl (82.0-101.0); MEAN PLATELET VOLUME 9.8 fl (7.4-10.4); MONOCYTE # 0.3 10^3/ul (0.3-0.9); MONOCYTES % 6.1 % (0.0-11.0); NEUTROPHIL # 3.8 10^3/ul (1.6-7.5); NEUTROPHILS % 75.5 % (39.0-77.0); PLATELET COUNT 155 10^3/UL (140-415); RED BLOOD COUNT 2.95 10^6/ul (4.70-6.10); RED CELL DISTRIBUTION WIDTH 16.8 % (11.5-14.5)
[2019-02-15 05:21] LABS: WHITE BLOOD COUNT 5.1 10^3/ul (4.8-10.8)
[2019-02-15] MEDS: PANTOPRAZOLE (EC) 40 MG TAB PO (05:40)
[2019-02-15] MEDS: CA CARBONATE (250 MG/ML) 5ML CUP PO ×2 (08:38→20:03)
[2019-02-15] MEDS: BICALUTAMIDE 50 MG TAB PO (08:38)
[2019-02-15] MEDS ORDERED: ENOXAPARIN 40 MG/0.4 ML SYG SC (12:00)
[2019-02-15] MEDS: ACETAMINOPHEN 325 MG TAB PO (15:29)
[2019-02-15] MEDS: CEFTRIAXONE 1 GM/50 ML (PMX) 50 ML IVPB (15:30)
[2019-02-15] MEDS: TAMSULOSIN (SR) 0.4 MG CAP PO (20:03)
[2019-02-15] MEDS: LORAZEPAM 2 MG INJ IV (23:42)
[2019-02-16] MEDS: HYDROmorphONE 2 MG/ML SYG IV ×3 (01:37→16:30)
[2019-02-16 05:40] LABS: ADD MAN DIFF? NO
[2019-02-16] MEDS: PANTOPRAZOLE (EC) 40 MG TAB PO (05:40)
[2019-02-16] MEDS: METHADONE (1 MG/ML 5 ML PO UD SYG) PO ×4 (05:41→23:43)
[2019-02-16 05:48] LABS: WHITE BLOOD COUNT 4.4 10^3/ul (4.8-10.8)
[2019-02-16 05:48] LABS: ABNORMAL IP MESSAGE 1; BASOPHILS % 0.5 % (0.0-2.0); EOSINOPHILS % 0.9 % (0.0-7.0); HEMATOCRIT 20.8 % (42.0-52.0); LYMPHOCYTES # 0.9 10^3/ul (0.8-2.9); LYMPHOCYTES % 19.9 % (15.0-51.0); MEAN CORPUSCULAR HEMOGLOBIN 26.6 pg (29.0-33.0); MEAN CORPUSCULAR HGB CONC 31.3 g/dl (32.0-37.0); MEAN CORPUSCULAR VOLUME 85.2 fl (82.0-101.0); MEAN PLATELET VOLUME 9.6 fl (7.4-10.4); MONOCYTE # 0.3 10^3/ul (0.3-0.9); MONOCYTES % 7.4 % (0.0-11.0); NEUTROPHILS % 68.6 % (39.0-77.0); PLATELET COUNT 152 10^3/UL (140-415); POSITIVE DIFF @See below; RED BLOOD COUNT 2.44 10^6/ul (4.70-6.10); RED CELL DISTRIBUTION WIDTH 16.7 % (11.5-14.5)
[2019-02-16 06:02] LABS: HEMOGLOBIN 6.5 g/dl (14.0-18.0)
[2019-02-16 07:00] LABS: HEMATOCRIT 23.3 % (42.0-52.0); HEMOGLOBIN 7.2 g/dl (14.0-18.0)
[2019-02-16 08:45] LABS: ANISOCYTOSIS 2+ (0-0); BASOPHILS % (M) 1 % (0-2); BURR CELLS 1+ (0-0); ELLIPTO 1+ (0-0); LYMPHOCYTES #M 0.7 10^3/ul (0.8-2.9); LYMPHOCYTES % (M) 17 % (15-51); METAMYELOCYTES %M 1 % (0-0); MICROCYTOSIS 2+ (0-0); MONOCYTE #M 0.2 10^3/ul (0.3-0.9); MONOCYTES % (M) 5 % (0-11); MYELOCYTES % (M) 1 % (0-0); PLATELET ESTIMATE NORMAL; POIKILOCYTOSIS 2+ (0-0); POLYCHROMASIA 3+ (0-0); REACTIVE LYMPHOCYTES% (M) 1 % (0-0); SEGMENTED NEUTROPHILS (M) % 74 % (39-77); SMUDGE%M 8 % (0-0); TEAR DROP CELLS 1+ (0-0)
[2019-02-16] MEDS: CA CARBONATE (250 MG/ML) 5ML CUP PO ×2 (09:14→21:08)
[2019-02-16] MEDS: BICALUTAMIDE 50 MG TAB PO (09:16)
[2019-02-16] MEDS: LEUPROLIDE 7.5 MG INJ SC (13:36)
[2019-02-16] MEDS: CEFTRIAXONE 1 GM/50 ML (PMX) 50 ML IVPB (16:30)
[2019-02-16] MEDS ORDERED: CIPROFLOXACIN 250 MG TAB PO (18:00)
[2019-02-16] MEDS: TAMSULOSIN (SR) 0.4 MG CAP PO (21:08)
[2019-02-16] MEDS: LORAZEPAM 2 MG INJ IV (22:06)
[2019-02-17] MEDS: HYDROmorphONE 2 MG/ML SYG IV (04:11)
[2019-02-17] MEDS: PANTOPRAZOLE (EC) 40 MG TAB PO (05:25)
[2019-02-17] MEDS: METHADONE (1 MG/ML 5 ML PO UD SYG) PO (05:26)
[2019-02-17 05:27] LABS: ADD MAN DIFF? NO
[2019-02-17 05:39] LABS: BASOPHILS % 0.2 % (0.0-2.0); EOSINOPHILS % 0.4 % (0.0-7.0); HEMATOCRIT 24.4 % (42.0-52.0); HEMOGLOBIN 7.3 g/dl (14.0-18.0); LYMPHOCYTES # 0.9 10^3/ul (0.8-2.9); LYMPHOCYTES % 19.5 % (15.0-51.0); MEAN CORPUSCULAR HEMOGLOBIN 26.1 pg (29.0-33.0); MEAN CORPUSCULAR HGB CONC 29.9 g/dl (32.0-37.0); MEAN CORPUSCULAR VOLUME 87.1 fl (82.0-101.0); MEAN PLATELET VOLUME 9.7 fl (7.4-10.4); MONOCYTE # 0.3 10^3/ul (0.3-0.9); NEUTROPHIL # 3.2 10^3/ul (1.6-7.5); PLATELET COUNT 171 10^3/UL (140-415); RED CELL DISTRIBUTION WIDTH 16.8 % (11.5-14.5)
[2019-02-17 05:39] LABS: WHITE BLOOD COUNT 4.6 10^3/ul (4.8-10.8)
[2019-02-17] MEDS: CA CARBONATE (250 MG/ML) 5ML CUP PO ×2 (08:02→21:23)
[2019-02-17] MEDS: morphine (ER) 15 MG TAB PO ×2 (08:02→21:21)
[2019-02-17] MEDS: BICALUTAMIDE 50 MG TAB PO (08:03)
[2019-02-17] MEDS: LORAZEPAM 2 MG INJ IV (09:57)
[2019-02-17] MEDS: HYDROmorphONE 2 MG TAB PO ×3 (13:03→23:49)
[2019-02-17] MEDS: CEFTRIAXONE 1 GM/50 ML (PMX) 50 ML IVPB ×2 (16:00)
[2019-02-17] MEDS: CIPROFLOXACIN 500 MG TAB PO (18:00)
[2019-02-17] MEDS: TAMSULOSIN (SR) 0.4 MG CAP PO (21:20)
[2019-02-17] MEDS: ACETAMINOPHEN 325 MG TAB PO (22:54)
[2019-02-18] MEDS: LORAZEPAM 2 MG INJ IV (00:44)
[2019-02-18] MEDS: PANTOPRAZOLE (EC) 40 MG TAB PO (05:26)
[2019-02-18] MEDS: CIPROFLOXACIN 500 MG TAB PO ×2 (05:26→18:55)
[2019-02-18] MEDS: HYDROmorphONE 2 MG TAB PO ×2 (05:27→13:40)
[2019-02-18 08:28] LABS: ADD MAN DIFF? NO
[2019-02-18 08:29] LABS: BASOPHILS % 0.5 % (0.0-2.0); EOSINOPHILS % 0.5 % (0.0-7.0); HEMATOCRIT 23.3 % (42.0-52.0); HEMOGLOBIN 7.2 g/dl (14.0-18.0); LYMPHOCYTES # 0.8 10^3/ul (0.8-2.9); LYMPHOCYTES % 20.4 % (15.0-51.0); MEAN CORPUSCULAR HEMOGLOBIN 26.4 pg (29.0-33.0); MEAN CORPUSCULAR HGB CONC 30.9 g/dl (32.0-37.0); MEAN CORPUSCULAR VOLUME 85.3 fl (82.0-101.0); MEAN PLATELET VOLUME 9.8 fl (7.4-10.4); MONOCYTE # 0.4 10^3/ul (0.3-0.9); MONOCYTES % 9.5 % (0.0-11.0); NEUTROPHIL # 2.4 10^3/ul (1.6-7.5); NEUTROPHILS % 66.4 % (39.0-77.0); PLATELET COUNT 163 10^3/UL (140-415); RED BLOOD COUNT 2.73 10^6/ul (4.70-6.10); RED CELL DISTRIBUTION WIDTH 16.8 % (11.5-14.5)
[2019-02-18 08:29] LABS: WHITE BLOOD COUNT 3.7 10^3/ul (4.8-10.8)
[2019-02-18 08:51] LABS: ANION GAP 5 (5-13); BLOOD UREA NITROGEN 14 mg/dl (7-20); CALCIUM 7.9 mg/dl (8.4-10.2); CARBON DIOXIDE 27 mmol/L (21-31); CHLORIDE 102 mmol/L (97-110); CREATININE 0.89 mg/dl (0.61-1.24); GLUCOSE 75 mg/dl (70-220); MAGNESIUM 1.9 mg/dl (1.7-2.5); POTASSIUM 4.5 mmol/L (3.5-5.1); SODIUM 134 mmol/L (135-144)
[2019-02-18 08:51] LABS: PHOSPHORUS 3.5 mg/dl (2.5-4.9)
[2019-02-18] MEDS: CA CARBONATE (250 MG/ML) 5ML CUP PO ×2 (09:45→20:41)
[2019-02-18] MEDS: morphine (ER) 15 MG TAB PO ×2 (09:45→20:42)
[2019-02-18] MEDS: BICALUTAMIDE 50 MG TAB PO (09:46)
[2019-02-18] MEDS: SOD CHLORIDE 0.9% 250 ML IV* (19:20)
[2019-02-18 20:33] LABS: IMMEDIATE SPIN CROSSMATCH 1 1
[2019-02-18] MEDS: TAMSULOSIN (SR) 0.4 MG CAP PO (20:42)
[2019-02-19] MEDS: LORAZEPAM 2 MG INJ IV (01:06)
[2019-02-19] MEDS: PANTOPRAZOLE (EC) 40 MG TAB PO (05:25)
[2019-02-19] MEDS: CIPROFLOXACIN 500 MG TAB PO (05:25)
[2019-02-19] MEDS: morphine (ER) 15 MG TAB PO (09:18)
[2019-02-19] MEDS: CA CARBONATE (250 MG/ML) 5ML CUP PO (09:19)
[2019-02-19] MEDS: BICALUTAMIDE 50 MG TAB PO (09:19)
== END 2019-02-19 13:17 | DRG 723 ==
LOC: 6WM 05:11 → MS1 21:22
PROC: 30233N1 Transfusion of Nonautologous Red Blood Cells into Peripheral Vein, Percutaneous Approach (ICD-10-PCS; principal; 2019-02-18)
DX: C61 Malignant neoplasm of prostate (principal); D61.818 Other pancytopenia; E46 Unspecified protein-calorie malnutrition; Z68.1 Body mass index [BMI] 19.9 or less, adult; R64 Cachexia; N39.0 Urinary tract infection, site not specified; C78.7 Secondary malignant neoplasm of liver and intrahepatic bile duct; C79.51 Secondary malignant neoplasm of bone; C77.2 Secondary and unspecified malignant neoplasm of intra-abdominal lymph nodes; N13.30 Unspecified hydronephrosis; R62.7 Adult failure to thrive; F10.20 Alcohol dependence, uncomplicated; F17.200 Nicotine dependence, unspecified, uncomplicated; G89.3 Neoplasm related pain (acute) (chronic); F41.9 Anxiety disorder, unspecified; N28.1 Cyst of kidney, acquired; Z91.19 Patient's noncompliance with other medical treatment and regimen; Z91.81 History of falling; Z86.19 Personal history of other infectious and parasitic diseases; Z66 Do not resuscitate
CPT/HCPCS: 36430; 74176; 80048; 80053; 81001; 83735; 84100; 84153; 84154; 85014; 85018; 85025; 85610; 86850; 86900; 86901; 86920; 87081; 87086; 97162; 97530